=== PATIENT | female | born 1955 | race Caucasian/White ===

== ENCOUNTER 2016-10-26 10:06 | Day surgery (SDC) | payer OTHER ==
--- NOTE | ~2016-10-26 | OP ---
Record Of Operation [facility] [address] [place]. [address] NAME: CLARE ONTIVEROS : 59 [facility] : [facility] [place] PAT#: [id number] AGE: 61 ADM/REG DATE : MR#: [id number] REPORT SERV DATE: 10/26/16 DICTATED BY: REMIGIO RICHARDSON III DATE: 10/26/16 REPORT STATUS : Draft TRANSCRIBED BY: MODL DATE: 10/26/16 DATE OF PROCEDURE: 10/26/2016 PREOPERATIVE DIAGNOSIS: Left trigger thumb and ring finger. POSTOPERATIVE DIAGNOSIS: Left trigger thumb and ring finger. PROCEDURE PERFORMED: Release of A1 karina left ring finger and left thumb. SURGEON: Remigio Richardson M.D. CANTEEN MANAGER: Dior. ANESTHESIA: LMA. ANTIBIOTICS: Ancef 2 g. CRYSTALLOIDS: 500 mL. ESTIMATED BLOOD LOSS: 5 mL. TOURNIQUET TIME: 14 minutes. COMPLICATIONS: None. PROCEDURE IN DETAIL: The patient was brought to the operating room, placed on the table in supine position, and general anesthesia was induced with an LMA. Pneumatic tourniquet was applied to the left upper extremity. Left upper extremity was prepped and draped in the usual sterile fashion and exsanguinated with a 4-inch Esmarch after surgical time-out was called, and tourniquet was inflated to 250 mmHg. Assuring good anesthesia, a transverse incision was made over the left ring finger of the MCP joint. Dissection was carried down to the flexor tendon sheath to identify the A1 karina. This was released with a 66 [place] blade and undermined with tenotomy scissors. The flexor tendon was pulled out of the wound to assure good release. The wound was then closed with interrupted 4-0 nylon. Attention was turned toward the left thumb, transverse incision was made at the level of the MCP joint, dissection was carried down to the very prominent tendon. The A1 karina was released with a 66 [place] blade and undermined with tenotomy scissors. Again, the tendon was pulled out of the wound to assure good release of the karina and the tendon. The skin was closed with interrupted 4-0 nylon about 4 mL of 0.5% Marcaine solution was injected into each wound for postoperative pain control. Sterile dressings were applied. Tourniquet was released after 14 minutes. The patient tolerated the procedure well, brought to the recovery in satisfactory condition. TB/MODL Record Of Operation [facility] [id number] [place]. [address] NAME: CLARE ONTIVEROS : 59 STATUS : [facility] [place] PAT#: [id number] AGE: 61 ADM/REG DATE : MR#: [id number] REPORT SERV DATE: 10/26/16 DICTATED BY: REMIGIO RICHARDSON III DATE: 10/26/16 REPORT STATUS : Draft TRANSCRIBED BY: MODL DATE: 10/26/16 Remigio Richardson III, M.D. / [id number] CC: Mario Liu III, M.D.
[~2016-10-26 10:06] MED LIST: VIT B 12; [UNRECOGNIZED DRUG - OTHER]
== END 2016-10-26 23:59 | disposition home or self-care (01) ==
LOC: MSC 10:06
PROVIDERS: Orthopaedic Surgery
PROC: 0LN80ZZ Release Left Hand Tendon, Open Approach (ICD-10-PCS; 2016-10-26)
PROC: 0LN80ZZ Release Left Hand Tendon, Open Approach (ICD-10-PCS; principal; 2016-10-26 12:45)
DX: M65.312 Trigger thumb, left thumb (principal); M65.342 Trigger finger, left ring finger; Z90.11 Acquired absence of right breast and nipple; Z78.0 Asymptomatic menopausal state; M19.90 Unspecified osteoarthritis, unspecified site; Z79.899 Other long term (current) drug therapy
CPT/HCPCS: 85014; 85018; 93005; A9270-GY; J0690; J2250; J2405; J3010